=== PATIENT | male | born 1960 | race Asian ===

== ENCOUNTER 2018-12-14 16:17 | Emergency (ER) | payer MEDICAID ==
[~2018-12-14] VITALS: Ht 152.4 cm; Wt 59.0 kg
--- NOTE | 2018-12-14 16:21 | NUR ---
TO ED04 WITH STEADY GAIT
[2018-12-14 16:26] VITALS: BP 130/74
--- NOTE | 2018-12-14 16:35 | NUR ---
BIB SON C/O DIFUSED SHARP ABDOMINAL PAIN, 12/19, SINCE 1300 TODAY. PER SON, PT HAD SOME UNKOWN MEDICATION TO DEFACATE TODAY. LAST BW WAS YESTERDAY. DENIES NAUSEA AND VOMITING. VSS; PATIENT POSITIONED FOR COMFORT; HOB ELEVATED; BEDRAILS UP X1; BED DOWN. ER MD MADE AWARE OF PT STATUS.
--- NOTE | 2018-12-14 16:50 | NUR ---
Dr. Torres evaluating patient at bedside.
[2018-12-14] MEDS ORDERED: NACL 0.9% 1,000 ML IV SCH (16:53)
[2018-12-14] MEDS ORDERED: KETOROLAC 30 MG/ML VIAL IVP ONE (16:55)
[2018-12-14 17:11] LABS: BASOPHILS % (AUTO) 0.3 % (0.0-2.0); EOSINOPHILS # (AUTO) 0.1 K/uL (0-0.4); EOSINOPHILS % (AUTO) 0.4 % (0.0-4.0); HEMATOCRIT 41.3 % (36-52); HEMOGLOBIN 13.5 g/dL (12.0-18.0); LYMPHOCYTES % (AUTO) 7.1 % (20.5-51.1); MEAN CORPUSCULAR HEMOGLOBIN 29 pg (27-31); MEAN CORPUSCULAR HGB CONC 33 g/dL (33-37); MEAN CORPUSCULAR VOLUME 88.8 fL (80-94); MONOCYTES # (AUTO) 0.7 K/uL (0.8-1.0); MONOCYTES % (AUTO) 5.3 % (1.7-9.3); NEUTROPHILS # (AUTO) 12.1 K/uL (1.8-7.7); NEUTROPHILS % (AUTO) 86.9 % (42.2-75.2); PLATELET COUNT (AUTO) 289 K/uL (140-450); RED BLOOD CELL COUNT(AUTO) 4.64 MIL/uL (4.20-6.10); RED CELL DISTRIBUTION WIDTH 12.9 % (11.6-13.7); WHITE BLOOD COUNT (AUTO) 13.9 K/uL (4.8-10.8)
--- NOTE | 2018-12-14 17:15 | NUR ---
Patient taken to CT scan via gurney by [employer].
[2018-12-14 17:19] LABS: ANION GAP 13.7 (8-16); CARBON DIOXIDE 27.1 mmol/L (21-32); CREATININE 0.9 mg/dL (0.7-1.3); POTASSIUM 3.8 mmol/L (3.5-5.1)
[2018-12-14 17:26] LABS: ALBUMIN 3.8 g/dL (3.4-5.0); TOTAL BILIRUBIN 0.8 mg/dL (0.0-1.0)
[2018-12-14] MEDS ORDERED: PIPERACILLIN/TAZOBACTAM 3.375 GM in DEXTROSE 5% 50 ML IV ONE (19:00)
[2018-12-14] MEDS ORDERED: PIPERACILLIN/TAZOBACTAM 3.375 GM VIAL IV ONE (19:16)
--- NOTE | 2018-12-14 19:30 | NUR ---
PT IS RESTING IN BED WITH EYES OPEN. VSS.
--- NOTE | 2018-12-14 20:00 | NUR ---
PT IS RESTING IN BED WITH EYES OPEN. VSS.
--- NOTE | 2018-12-14 21:15 | NUR ---
REPORT WAS GIVEN TO SHAUNNA Fernandez RN OF ROOM 2150 OF [facility]. PHONE # : [phone].
--- NOTE | 2018-12-14 21:24 | NUR ---
PT'S BLOOD PRESURE IS 93/63 [facility], DR DEL ROSARIO NOTIFIED.
--- NOTE | 2018-12-14 21:25 | NUR ---
[facility] AT BEDSIDE
--- NOTE | 2018-12-14 21:34 | NUR ---
PT TAKEN BY [facility] TO [facility] ROOM 2154
--- NOTE | 2018-12-14 21:35 | NUR ---
Patient to be transferred to [facility]. Is being transferred due to APPENDICITIS. Receiving facility has accepting physician and available space. ER physician has signed transfer form. Patient or responsible alliance party has agreed to transfer and signed form. Patient belongings inventoried and will be sent with patient. Copy of nursing notes, lab reports, EKG, Physicians Orders and X-rays to be sent with patient. Report called to SHAUNNA at receiving facility. [facility] ambulance service has been called for transfer.
[2018-12-14 21:42] VITALS: BP 94/63
== END 2018-12-14 21:34 | disposition short-term general hospital (02) ==
LOC: MED 16:17
DX: K35.80 Unspecified acute appendicitis (principal); R19.7 Diarrhea, unspecified
CPT/HCPCS: 36415; 74176; 80053; 83690; 85025; 96361; 96365; 96375; 99285; J1885; J2543; J7030; J7060; 99284

== ENCOUNTER 2020-02-28 08:19 | Emergency (ER) | payer MEDICAID ==
[~2020-02-28] VITALS: Ht 165.1 cm; Wt 62.6 kg
[2020-02-28 08:24] VITALS: BP 120/70
[2020-02-28] MEDS ORDERED: KETOROLAC 15 MG/ML VIAL IVP ONE (08:45)
[2020-02-28] MEDS ORDERED: NACL 0.9% 1,000 ML IV ONE (08:45)
[2020-02-28 09:13] LABS: BASOPHILS # (AUTO) 0.1 K/uL (0.00-0.22); BASOPHILS % (AUTO) 0.5 % (0.0-2.0); EOSINOPHILS # (AUTO) 0.2 K/uL (0-0.4); EOSINOPHILS % (AUTO) 1.3 % (0.0-4.0); HEMATOCRIT 40.4 % (36-52); HEMOGLOBIN 13.4 g/dL (12.0-18.0); LYMPHOCYTES # (AUTO) 1.5 K/uL (2.0-11.5); LYMPHOCYTES % (AUTO) 12.7 % (20.5-51.1); MEAN CORPUSCULAR HEMOGLOBIN 29 pg (27-31); MEAN CORPUSCULAR HGB CONC 33 g/dL (33-37); MEAN CORPUSCULAR VOLUME 88.7 fL (80-94); MONOCYTES # (AUTO) 1.3 K/uL (0.8-1.0); MONOCYTES % (AUTO) 10.7 % (1.7-9.3); NEUTROPHILS % (AUTO) 74.8 % (42.2-75.2); PLATELET COUNT (AUTO) 325 K/uL (140-450); RED BLOOD CELL COUNT(AUTO) 4.56 MIL/uL (4.20-6.10)
[2020-02-28 09:16] LABS: APPEARANCE,URINE CLEAR (CLEAR); BILIRUBIN,URINE 1+ (NEGATIVE); BLOOD, URINE TRACE-I (NEGATIVE); COLOR,URINE YELLOW (YELLOW); LEUKOCYTE ESTERASE ,URINE NEGATIVE (NEGATIVE); NITRITE, URINE NEGATIVE (NEGATIVE); UGLUCOSE NEGATIVE (NEGATIVE)
[2020-02-28 09:33] LABS: ALBUMIN 3.6 g/dL (3.4-5.0); ANION GAP 13.6 (8-16); CREATININE 0.9 mg/dL (0.6-1.3); POTASSIUM 3.6 mmol/L (3.5-5.1); TOTAL BILIRUBIN 0.9 mg/dL (0.0-1.0)
[2020-02-28 09:40] LABS: RBC,URINE 0-5 /HPF (0-5); WBC,URINE 0-5 /HPF (0-5)
[2020-02-28] MEDS ORDERED: MORPHINE SULFATE 4 MG/ML SYR IVP ONE (11:05)
[2020-02-28] MEDS ORDERED: metroNIDAZOLE 500 MG/NS PREMIX 100 ML IV ONE (11:05)
[2020-02-28] MEDS ORDERED: ONDANSETRON 4 MG/2 ML VIAL IVP ONE (11:05)
[2020-02-28 14:46] VITALS: BP 96/62
== END 2020-02-28 14:27 | disposition short-term general hospital (02) ==
LOC: MED 08:19
DX: K57.92 Diverticulitis of intestine, part unspecified, without perforation or abscess without bleeding (principal); Z90.49 Acquired absence of other specified parts of digestive tract
CPT/HCPCS: 36415; 74178; 80053; 81001; 83605; 85025; 85610; 85730; 86886; 86900; 86901; 87040; 87086; 87426; 96361; 96365; 96375; 99285; J1885; J2270; J2405; J3490; Q9967; J7030

== ENCOUNTER 2022-03-04 08:17 | Emergency (ER) | payer MEDICAID, OTHER ==
[~2022-03-04] VITALS: Ht 165.1 cm; Wt 61.2 kg
[2022-03-04 08:36] VITALS: BP 125/70
--- NOTE | 2022-03-04 08:42 | NUR ---
PT W/C ASSISTED TO BED 11.
[2022-03-04] MEDS ORDERED: KETOROLAC 30 MG/ML VIAL IM ONE (09:00)
--- NOTE | 2022-03-04 09:18 | NUR ---
61y/o male presents to ED with c/o 10/10 ankle pain x 2-3days. Pt reports twisting left ankle while walking, unable to bare weight on left foot, took unknown medication for pain with relief. Pt's left ankle appears swollen upon assessment, limited ROM, CMS intact.
--- NOTE | 2022-03-04 09:40 | NUR ---
pt returned safe demonstration of crutches.
[2022-03-04] MEDS ORDERED: IBUP-2213 PO (09:48)
--- NOTE | 2022-03-04 10:17 | NUR ---
Patient discharged with v/s stable. Written and verbal after care instructions ABOUT ANKLE SPRAIN given and explained. Patient alert, oriented and verbalized understanding of instructions. Wheel Chair Assisted with to car. All questions addressed prior to discharge. ID band removed. Patient advised to follow up with PMD. Rx of IBUPROFEN given. Patient educated on indication of medication including possible reaction and side effects. Opportunity to ask questions provided and answered.
[2022-03-04 10:19] VITALS: BP 125/70
== END 2022-03-04 10:17 | disposition home or self-care (01) ==
LOC: MED 08:17
DX: S93.402A Sprain of unspecified ligament of left ankle, initial encounter (principal); X50.1XXA Overexertion from prolonged static or awkward postures, initial encounter; Y93.01 Activity, walking, marching and hiking; Y92.89 Other specified places as the place of occurrence of the external cause; Y99.8 Other external cause status
CPT/HCPCS: 73610; 73630; 96372; 99284; J1885; Q0092